=== PATIENT | male | born 1930 | race Caucasian/White ===

== ENCOUNTER 2019-09-03 21:32 | Inpatient (IN) | payer MEDICARE ==
[~2019-09-03] VITALS: Ht 177.8 cm; Wt 66.2 kg
[2019-09-03 06:39] VITALS: BP 138/79
--- NOTE | 2019-09-03 22:00 | NUR ---
PT STARTING TO PACE IN ROOM PT WAS REASSURED KEPT CALM AND REORIENTED PT IS ON 5150H FOR GD UNDER DR WAN/ DR ARMENDARIZ PT KEPT TRYING TO GET OFF BED AND ROOM
[2019-09-03] MEDS ORDERED: DUTA0.5C PO (22:14)
[2019-09-03] MEDS ORDERED: TAMS-3 PO (22:14)
[2019-09-03] MEDS ORDERED: ATOR40TA PO (22:14)
[2019-09-03] MEDS ORDERED: CLOP75TA15 PO (22:14)
[2019-09-03] MEDS ORDERED: AMIO200T4 PO (22:14)
[2019-09-03] MEDS ORDERED: LOSA50TA3 PO (22:14)
--- NOTE | 2019-09-03 22:36 | NUR ---
HAND OFF AND SBAR GIVEN TO GRETA RN PT WILL BE ADMITTED TO [facility] ALL BELONGINGS SIGNED/CO-SIGNED ALL BELONGINGS W/ PT ACC BY [facility]IA [place] [id number] UP BED AT LOWEST POSITION
[2019-09-03] MEDS ORDERED: MAGNESIUM HYDROXIDE 30 ML LIQUID UDC PO PRN (22:45)
[2019-09-03] MEDS ORDERED: LORAZEPAM 1 MG TABLET PO PRN (22:45)
[2019-09-03] MEDS ORDERED: TEMAZEPAM 7.5 MG CAPSULE PO PRN (22:45)
[2019-09-03] MEDS ORDERED: MAG HYDROX/AL HYDROX/SIMETH 30 ML LIQUID UDC PO PRN (22:45)
[2019-09-03] MEDS ORDERED: ACETAMINOPHEN 325 MG TABLET PO PRN (22:45)
--- NOTE | 2019-09-03 23:45 | NUR ---
GPS: ADMISSION NOTE: AT APPROX 2245 ADMITTED 89 YEARS OLD MALE [place] [facility] A [facility] FOR GD. ACCORDING TO MEDICAL RECORDS, PATIENT LIVES AT HOME WITH HIS PEGGY. INITIALLY, PATIENT WAS TAKEN TO [facility] ER D/T CHEST PAIN ON 08/31/19; SUBSEQUENTLY, HE WAS ADMITTED TO THE MEDICAL SURGICAL FLOOR. ACCORDING TO THE HOLD, WHILE IN THE HOSPITAL, PATIENT BECAME UNCOOPERATIVE, AGGRESSIVE, CONFUSED, AND COMBATIVE. HE REQUIRED HALDOL IM SHOT AND CODE FOSTER. UPON FACE TO FACE ASSESSMENT, PT WAS NOTED A/O X 1. CONFUSED, TANGENTAL, FORGETFUL AND UNABLE TO PROVIDED MEANINGFUL INFORMATION. 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 PATIENT ALSO WEARS GLASSES. PATIENT WAS GIVEN HIS ADVISEMENT AND THE "PATIENT RIGHT" BOOKLET. PATIENT IS UNDER THE CARE OF DR HICKMAN AND DR WAN. WE WILL CONTINUE TO MONITOR Q15MIN HEAD CHECKS.
--- NOTE | 2019-09-03 23:50 | NUR ---
BODY ASSESSMENT DONE, PATIENT NOTED WITH ECCHYMOSIS THROUGHOUT BOTH ARMS. NO SWELLING, NO DEFORMITIES, AND NO S/S OF INFECTION WERE OBSERVED. PT (IS ON PLAVIX) PATIENT DENIES PAIN. WILL CONTINUE TO MONITOR.
[2019-09-04 06:51] LABS: *BILIRUBIN,URIN NEGATIVE (NEGATIVE); *BLOOD, URINE NEGATIVE (NEGATIVE); *CLARITY,URINE SLIGHTLY CLOUDY (CLEAR); *COLOR,URINE YELLOW (YELLOW); *KETONES,URINE NEGATIVE (NEGATIVE); *UROBILINOGEN,URINE 0.2 E.U./dl (NORMAL); LEUKOCYTE ESTERASE ,URINE NEGATIVE (NEGATIVE); NITRITE, URINE NEGATIVE (NEGATIVE); PH,URINE 5.5 (5.0-8.0); UGLUCOSE NEGATIVE (NEGATIVE)
[2019-09-04 07:10] LABS: BASOPHILS # (AUTO) 0.1 K/uL (0.0-8.0); BASOPHILS % (AUTO) 1.2 % (0.0-2.0); EOSINOPHILS # (AUTO) 0.1 K/uL (0.0-0.7); EOSINOPHILS % (AUTO) 2.6 % (0.0-7.0); HEMATOCRIT 39.5 % (36.7-47.1); LYMPHOCYTES # (AUTO) 1.3 K/uL (20.0-40.0); LYMPHOCYTES % (AUTO) 26.6 % (20.5-51.5); MEAN CORPUSCULAR HEMOGLOBIN 32.6 uug (23.8-33.4); MEAN CORPUSCULAR HGB CONC 33 g/dL (32.5-36.3); MEAN CORPUSCULAR VOLUME 98.8 fL (73.0-96.2); MONOCYTES # (AUTO) 0.5 K/uL (2.0-10.0); MONOCYTES % (AUTO) 9.4 % (0.0-11.0); NEUTROPHILS # (AUTO) 3.1 K/uL (1.8-8.9); NEUTROPHILS % (AUTO) 60.2 % (38.5-71.5); PLATELET COUNT (AUTO) 174 K/uL (152-348); WHITE BLOOD COUNT (AUTO) 5.1 K/uL (3.6-10.2)
[2019-09-04 07:25] LABS: BILIRUBIN,TOTAL 0.7 mg/dL (0.2-1.0); CREATININE 1.3 mg/dL (0.6-1.3); POTASSIUM 4.2 mmol/L (3.5-5.1); TOTAL PROTEIN, SERUM 6.4 g/dL (6.4-8.2)
--- NOTE | 2019-09-04 07:30 | NUR ---
Recieved pt sitted up on a gerochair. Awake and orientedx1. Very calm and cooperative but forgetful.
[2019-09-04 07:31] LABS: BACTERIA,URINE FEW /HPF (NONE SEEN); MUCUS,URINE MODERATE /LPF (0-FEW); RBC,URINE NONE SEEN /HPF (0-3); SQUAMOUS EPITHELIAL CELL,UR FEW /HPF (NONE SEEN); WBC,URINE NONE SEEN /HPF (0-3)
[2019-09-04 07:52] VITALS: BP 119/63
--- NOTE | 2019-09-04 14:00 | NUR ---
and niece came in and visited the pt. Medications brought in but without mg dose. Medication reconciliation still pending. Dr Lara is aware.
--- NOTE | 2019-09-04 15:12 | NUR ---
Family Contact: Sw called pts Gadiel Doll ([phone]) to gather collateral information about the pt but was unavailable. Sw left pts Sharmila a voicemail to call back.
[2019-09-04 16:00] VITALS: BP 131/70
--- NOTE | 2019-09-04 16:23 | NUR ---
Family Contact: Pts Sharmila ([phone]) called back. SW spoke to Sharmila to gather collateral information. SW explained pts treatment and discharge planning. Per Sharmila, she stated that she wants pt back home and that she is involved in pts care. SW informed her that pt wishes to be discharged home and that pt agreed to the discharge planning.
--- NOTE | 2019-09-04 17:30 | NUR ---
Pt stayed in the activity room most of the time. Pt also walked with PT using his walker, ambulated well. Pt is independent in feeding himself, BRP with assistance.
[2019-09-04] MEDS: ATORVASTATIN 40 MG TABLET PO SCH (20:22)
[2019-09-04] MEDS: TAMSULOSIN HCL 0.4 MG CAP.SR.24H PO SCH (20:22)
[2019-09-04 20:31] VITALS: BP 133/73
--- NOTE | 2019-09-05 06:57 | NUR ---
PT SLEPT5.45 HOURS. PT SHOWS NO SIGNS OF ACUTE DISTRESS. PT COMPLIANT WITH CARE. PRESCRIBED MEDICATION GIVEN AND PT TOLERATED IT WELL. PT HAVE EPISODES OF FORGETFULNESS. PT PLEASANT. NEEDS REORIENTATION. HEARING AIDS ON THE MED ROOM. SAFETY AND COMFORT PROVIDED. WILL ENDORSE TO INCOMING NURSE FOR CONTINUITY OF CARE.
[2019-09-05 07:30] VITALS: BP 103/55
[2019-09-05] MEDS: RIVASTIGMINE TARTRATE 1.5 MG CAPSULE PO SCH ×2 (08:32→20:47)
[2019-09-05] MEDS: CLOPIDOGREL 75 MG TABLET PO SCH (08:32)
[2019-09-05] MEDS: DIVALPROEX 250 MG TABLET.DR PO SCH ×2 (08:37→20:47)
[2019-09-05] MEDS: risperiDONE 0.5 MG TABLET PO SCH ×2 (08:38→20:47)
[2019-09-05] MEDS: DUTASTERIDE 0.5 MG CAPSULE PO SCH (08:43)
[2019-09-05] MEDS: AMIODARONE HCL 200 MG TABLET PO SCH ×2 (09:56→09:58)
[2019-09-05] MEDS: LOSARTAN POTASSIUM 50 MG TABLET PO SCH (10:04)
[2019-09-05 15:21] VITALS: BP 134/60
--- NOTE | 2019-09-05 20:00 | NUR ---
Patient received into care, sitting up in gerichair, talking on the telephone. Patient is alert/oriented x2 and has no complaints of pain or discomfort at this time. All safety and fall precaution measures are in place. Will continue to monitor.
[2019-09-05 20:23] VITALS: BP 150/87
[2019-09-05] MEDS: TAMSULOSIN HCL 0.4 MG CAP.SR.24H PO SCH (20:47)
[2019-09-05] MEDS: ATORVASTATIN 40 MG TABLET PO SCH (20:47)
--- NOTE | 2019-09-06 06:23 | NUR ---
Patient slept 3.46 hours this shift and was compliant with nursing care and medicine regimen. MD met with patient and patient is to be released into the care of his niece on 09/06/19. Patient had no complaints of pain or discomfort throughout the shift and all care was addressed promptly. All safety and fall precaution measures remain in place.
[2019-09-06 07:30] VITALS: BP 146/72
--- NOTE | 2019-09-06 07:30 | NUR ---
Recieved pt sitting on a gerochair, awake and oriented to his name but very forgetful. Appears to be in a very pleasant spirit. Pt is very cooperative, ambulates with assistance but slow unsteady gait. Pt is aware that he is going home today.
[2019-09-06] MEDS ORDERED: AMIODARONE HCL 200 MG TABLET PO SCH (09:00)
[2019-09-06] MEDS: DIVALPROEX 250 MG TABLET.DR PO SCH (09:07)
[2019-09-06] MEDS: CLOPIDOGREL 75 MG TABLET PO SCH (09:07)
[2019-09-06 09:08] VITALS: BP 146/72
[2019-09-06] MEDS: risperiDONE 0.5 MG TABLET PO SCH (09:08)
[2019-09-06] MEDS: DUTASTERIDE 0.5 MG CAPSULE PO SCH (09:08)
[2019-09-06] MEDS: LOSARTAN POTASSIUM 50 MG TABLET PO SCH (09:08)
[2019-09-06] MEDS: RIVASTIGMINE TARTRATE 1.5 MG CAPSULE PO SCH (09:08)
--- NOTE | 2019-09-06 10:30 | NUR ---
Seen and examined by Dr Jones with a discharge order. Pt ate good breakfast and took his medications without any problem. Very compliant.
--- NOTE | 2019-09-06 11:00 | NUR ---
Informed the vat house laborer about the missing eye glasses and is aware. Family informed and denied taking it home. Freelance Translator will leave a note for PI.
--- NOTE | 2019-09-06 12:15 | NUR ---
Discharge instructions given to niece and with good understanding.
--- NOTE | 2019-09-06 12:30 | NUR ---
Pt is discharged via w/c accompanied by and niece. Condition is stable.
--- NOTE | 2019-09-06 12:30 | NUR ---
and niece came to pick him up. All belongings and valuables given back to them and acknowledged. Aware that eyeglasses was lost and PI will notify them back.
== END 2019-09-06 12:30 | disposition home or self-care (01) | DRG 885 ==
LOC: ER 21:37 → GPS 22:29
PROVIDERS: ADMIT Psychiatry & Neurology Psychiatry; ATTEND Internal Medicine
DX: F39 Unspecified mood [affective] disorder (principal); N17.0 Acute kidney failure with tubular necrosis; I11.0 Hypertensive heart disease with heart failure; E44.0 Moderate protein-calorie malnutrition; F03.90 Unspecified dementia, unspecified severity, without behavioral disturbance, psychotic disturbance, mood disturbance, and anxiety; F29 Unspecified psychosis not due to a substance or known physiological condition; E78.5 Hyperlipidemia, unspecified; Z79.899 Other long term (current) drug therapy; I50.9 Heart failure, unspecified; N40.0 Benign prostatic hyperplasia without lower urinary tract symptoms; Z68.20 Body mass index [BMI] 20.0-20.9, adult; M19.90 Unspecified osteoarthritis, unspecified site; I25.10 Atherosclerotic heart disease of native coronary artery without angina pectoris; Z74.09 Other reduced mobility
CPT/HCPCS: 36415; 71045; 84443; 85025; 87086; A4663; J3490